=== PATIENT | male | born 1985 | race Caucasian/White ===

== ENCOUNTER 2017-09-27 13:05 | Inpatient (IN) | payer OTHER ==
[2017-09-27 16:39] VITALS: BMI 23.6
--- NOTE | 2017-09-27 17:10 | HP ---
COWS - Scale Resting Pulse: 1= [place] 81-100 Sweatin=Flushed/Facial Moisture Restless Observation: 1= Difficult to Sit Still Pupil Size: 0= Normal to Room Light Bone or Joint Aches: 2= Severe Diffuse Aches Runny Nose/ Eye Tearin= Runny Nose/Eyes GI Upset > 30mins: 2= Nausea/Diarrhea Tremor Observation: 2= Slight Tremor Visible Yawning Observation: 2= >3x During Session Anxiety or Irritability: 2=Irritable/Anxious Goose Flesh Skin: 3=Piloerection COWS Score: 19 CIWA Score - CIWA Score Nausea/Vomitin-Mild Nausea/No Vomiting Muscle Tremors: 4-Moderate,w/Arms Extend Anxiety: 4-Mod. Anxious/Guarded Agitation: 4-Moderately Restless Paroxysmal Sweats: 3 Orientation: 0-Oriented Tacttile Disturbances: 0-None Auditory Disturbances: 0-None Visual Disturbances: 0-None Headache: 0-None Present CIWA-Ar Total Score: 16 Admission ROS BHS - HPI Chief Complaint: I am here for detox and get it right. Allergies/Adverse Reactions: Allergies Allergy/AdvReac Type Severity Reaction Status Date / Time almond Allergy Severe Difficulty Verified 09/27/17 17:01 Breathing No Known Drug Allergies Allergy Verified 09/27/17 17:01 History of Present Illness: pt is a 32yr old male with a history of alcohol and heroin dependence seeking detox for treatment. Exam Limitations: No Limitations - Ebola screening Have you traveled outside of the country in the last 21 days: No (N) Have you had contact with anyone from an Ebola affected area: No Have you been sick,other than usual withdrawal symptoms: No Do you have a fever: No - Review of Systems Constitutional: Chills, Diaphoresis, Loss of Appetite, Night Sweats, Changes in sleep, Unintentional Wgt. Loss EENT: reports: Tearing, Nose Congestion Respiratory: reports: No Symptoms reported Cardiac: reports: Lightheadedness, Syncope GI: reports: Diarrhea, Nausea, Poor Appetite, Poor Fluid Intake, Indigestion : reports: No Symptoms Reported Musculoskeletal: reports: Back Pain, Joint Pain Integumentary: reports: Flushing, Sweating Neuro: reports: Headache, Tingling, Tremors Endocrine: reports: Excessive Sweating, Flushing, Intolerance to Cold, Intolerance to Heat Hematology: reports: No Symptoms Reported Psychiatric: reports: Judgement Intact, Mood/Affect Appropiate, Orientated x3, Agitated, Anxious Other Systems: Reviewed and Negative Patient History - Patient Medical History Hx Anemia: No Hx Asthma: No Hx Chronic Obstructive Pulmonary Disease (COPD): No Hx Cancer: No Hx Cardiac Disorders: No Hx Congestive Heart Failure: No Hx Hypertension: No Hx Hypercholesterolemia: No Hx Pacemaker: No HX Cerebrovascular Accident: No Hx Seizures: No Hx Dementia: No Hx Diabetes: No Hx Gastrointestinal Disorders: No Hx Liver Disease: No Hx Genitourinary Disorders: No Hx Sexually Transmitted Disorders: No Hx Renal Disease (ESRD): No Hx Thyroid Disease: No Hx Human Immunodeficiency Virus (HIV): No (negative) Hx Hepatitis C: No (negative) Hx Depression: No Hx Suicide Attempt: No Hx Bipolar Disorder: No Hx Schizophrenia: No Other Medical History: anxiety - Patient Surgical History Past Surgical History: No - PPD History Previous Implant?: Yes Documented Results: Negative w/o proof PPD to be Administered?: Yes - Reproductive History Patient is a Female of Child Bearing Age (11 -55 yrs old): No - Smoking Cessation Smoking history: Current every day smoker Have you smoked in the past 12 months: Yes Aproximately how many cigarettes per day: 7 Hx Chewing Tobacco Use: No Initiated information on smoking cessation: Yes 'Breaking Loose' booklet given: 09/27/17 - Substance & Tx. History Hx Alcohol Use: Yes Hx Substance Use: Yes Substance Use Type: Alcohol, Heroin Hx Substance Use Treatment: Yes (last detox [facility] 7yrs ago) - Substances Abused Heroin Route: Inhalation Frequency: Daily Amount used: 10-15 bags Age of first use: 31 Date of Last Use: 09/26/17 Alcohol Route: Oral Frequency: 3-6 times per week Amount used: 10-12 beers Age of first use: 21 Date of Last Use: 09/25/17 Family Disease History - Family Disease History Family History: Denies Admission Physical Exam BHS - Vital Signs Vital Signs: Vital Signs - 24 hr 09/27/17 16:37 Temperature 97.2 F L Pulse Rate 81 Respiratory 20 Rate Blood Pressure 125/78 - Physical General Appearance: Yes: Appropriately Dressed, Moderate Distress, Tremorous, Irritable, Sweating, Anxious HEENTM: Yes: Normal Voice, Nasal Congestion, Rhinorrhea Respiratory: Yes: Lungs Clear, Normal Breath Sounds, No Respiratory Distress Neck: Yes: No masses,lesions,Nodules Breast: Yes: Within Normal Limits, Axillae without masses Cardiology: Yes: Regular Rhythm, Regular Rate, S1, S2 Abdominal: Yes: Normal Bowel Sounds, Non Tender, Soft Genitourinary: Yes: Within Normal Limits Back: Yes: Normal Inspection Musculoskeletal: Yes: full range of Motion Extremities: Yes: Normal Capillary Refill, Normal Inspection, Non-Tender, Tremors Neurological: Yes: Fully Oriented, Alert, Normal Response Integumentary: Yes: Normal Color, Diaphoresis Lymphatic: Yes: Within Normal Limits - Diagnostic (1) Opioid dependence with withdrawal Current Visit: Yes Status: Chronic (2) Nicotine dependence Current Visit: Yes Status: Chronic Qualifiers: Nicotine product type: cigarettes Substance use status: uncomplicated Qualified Code(s): F17.210 - Nicotine dependence, cigarettes, uncomplicated (3) Alcohol dependence with uncomplicated withdrawal Current Visit: Yes Status: Chronic Cleared for Admission [facility] - Detox or Rehab [facility] Level of Care: Medically Managed Detox Regimen/Protocol: Methadone/Librium [facility] Breath Alcohol Content Breath Alcohol Content: 0 Urine Drug Screen - Results Drug Screen Negative: No Urine Drug Screen Results: OPI-Opiates
[2017-09-27] MEDS ORDERED: MAG HYDROX/AL HYDROX/SIMETH 30 ML UNIT-DOSE CUP PO PRN (17:14)
[2017-09-27] MEDS ORDERED: guaiFENesin/D-METHORPHAN HB 10 ML UNIT-DOSE CUPS PO PRN (17:14)
[2017-09-27] MEDS ORDERED: MAGNESIUM HYDROX 2400MG/30ML ORAL SUSPENSION 30 ML CUP PO PRN (17:14)
[2017-09-27] MEDS ORDERED: chlordiazePOXIDE HCL 25 MG CAPSULE PO PRN (17:14)
[2017-09-27] MEDS ORDERED: MAGNESIUM CITRATE 300 ML BOTTLE PO PRN (17:14)
[2017-09-27] MEDS ORDERED: LOPERAMIDE HCL 2 MG CAPSULE PO PRN (17:14)
[2017-09-27] MEDS ORDERED: P-EPHED 60MG/TRIPROLIDI 2.5MG TABLET PO PRN (17:14)
[2017-09-27] MEDS ORDERED: MENTHOL/PHENOL 1 EACH UD MM PRN (17:14)
[2017-09-27] MEDS ORDERED: METHADONE HCL 10 MG TABLET (FOR DETOX USE ONLY) PO ONE ×2 (19:00→23:00)
[2017-09-27] MEDS ORDERED: chlordiazePOXIDE HCL 25 MG CAPSULE PO ONE (19:00)
[2017-09-27] MEDS: IBUPROFEN 400 MG TABLET (FP) PO PRN (19:49)
[2017-09-27] MEDS: chlordiazePOXIDE HCL 25 MG CAPSULE PO SCH (22:39)
[2017-09-27] MEDS: THIAMINE HCL 100 MG TABLET (FP) PO SCH (22:39)
[2017-09-27] MEDS: ACETAMINOPHEN 325 MG TABLET (FP) PO PRN (22:43)
[2017-09-27 23:20] LABS: URINE APPEARANCE CLEAR; URINE BILIRUBIN NEGATIVE (NEGATIVE); URINE BLOOD NEGATIVE (NEGATIVE); URINE COLOR LTYELLOW; URINE GLUCOSE (UA) NEGATIVE (NEGATIVE); URINE KETONE TRACE (NEGATIVE); URINE LEUK ESTERASE NEGATIVE (NEGATIVE); URINE NITRITE NEGATIVE (NEGATIVE); URINE PROTEIN NEGATIVE (NEGATIVE); URINE UROBILINOGEN NEGATIVE mg/dL (0.2-1.0)
[2017-09-28] MEDS: chlordiazePOXIDE HCL 25 MG CAPSULE PO SCH (06:00)
[2017-09-28] MEDS ORDERED: METHADONE HCL 10 MG TABLET (FOR DETOX USE ONLY) PO SCH (10:00)
[2017-09-28] MEDS: diazePAM 5 MG TABLET PO PRN ×4 (10:10→22:36)
[2017-09-28] MEDS: PRENATAL VITAMINS W/ FOLIC ACID TABLET (FP) PO SCH (10:10)
[2017-09-28] MEDS: NICOTINE POLACRILEX 4 MG GUM BC PRN (10:11)
[2017-09-28] MEDS: NICOTINE 21 MG/24 HOURS TOPICAL PATCH TD SCH (10:11)
[2017-09-28 10:22] LABS: HEMATOCRIT 43.3 % (35.4-49); HEMOGLOBIN 14.6 GM/dL (11.7-16.9); MCH 29.7 pg (25.7-33.7); MCHC 33.7 g/dl (32.0-35.9); MEAN CELL VOLUME 88.3 fl (80-96); MEAN PLT VOLUME 8.2 fl (7.5-11.1); PLATELET COUNT 279 K/MM3 (134-434); RDW 12.5 % (11.9-15.9); WHITE BLOOD COUNT 6.7 K/mm3 (4.0-10.0)
[2017-09-28 10:31] LABS: ALBUMIN 3.9 g/dl (3.4-5.0); ALK PHOS 50 U/L (45-117); ANION GAP 6 (8-16); BLOOD UREA NITROGEN 11 mg/dL (7-18); CALCIUM 8.8 mg/dL (8.5-10.1); CHLORIDE 104 mmol/L (98-107); CO2 30 mmol/L (21-32); GLUCOSE,RANDOM 93 mg/dL (74-106); SODIUM 140 mmol/L (136-145)
[2017-09-28 10:36] LABS: BILIRUBIN,TOTAL 0.7 mg/dL (0.2-1.0); SGOT/AST 13 U/L (15-37); SGPT/ALT 26 U/L (12-78); TOT PROT 7.1 g/dl (6.4-8.2)
--- NOTE | 2017-09-28 10:45 | EKG ---
Test Reason : Blood Pressure : / mmHG Vent. Rate : 069 BPM Atrial Rate : 069 BPM P-R Int : 134 ms QRS Dur : 096 ms QT Int : 396 ms P-R-T Axes : 040 068 037 degrees QTc Int : 424 ms NORMAL SINUS RHYTHM NORMAL ECG NO PREVIOUS ECGS AVAILABLE Confirmed by BENEDICT BREAUX, SHIRLEY ([id number]) on 09/28/2017 10:45:50 AM Referred By: Confirmed By:SHIRLEY MCMULLEN MD
--- NOTE | 2017-09-28 11:38 | CONSULT ---
[facility] Psychiatric Consult - Data Date of interview: 09/28/17 Admission source: [facility] Identifying data: Pt. is 32 year old male, single, without kids, and currently working. This is patient's first admission to [facility]. Pt. admitted to for alcohol and heroin dependence. Substance Abuse History: Smoking Cessation. Smoking history: Current every day smoker. Have you smoked in the past 12 months: Yes. Aproximately how many cigarettes per day: 7. Hx Chewing Tobacco Use: No. Initiated information on smoking cessation: Yes. 'Breaking Loose' booklet given: 09/27/17. - Substance & Tx. History. Hx Alcohol Use: Yes. Hx Substance Use: Yes. Substance Use Type : Alcohol, Heroin. Hx Substance Use Treatment: Yes (last detox [facility] 7yrs ago). - Substances Abused. Heroin. Route: Inhalation. Frequency: Daily. Amount used: 10-15 bags. Age of first use: 31. Date of Last Use: 09/26/17. * * Alcohol. Route: Oral. Frequency: 3-6 times per week. Amount used: 10-12 beers. Age of first use: 21. Date of Last Use: 09/25/17 Medical History: Denies. Psychiatric History: Pt. denies h/o psychiatric hospitalizations, suicide attempt and OPC. Reports a history of anxiety and has been prescribed klonopin in the past. Physical/Sexual Abuse/Trauma History: Denies. Mental Status Exam - Mental Status Exam Alert and Oriented to: Time, Place, Person Cognitive Function: Good Patient Appearance: Well Groomed Mood: Hopeful Affect: Appropriate Patient Behavior: Appropriate, Cooperative Speech Pattern: Clear, Appropriate Voice Loudness: Normal Thought Process: Goal Oriented Thought Disorder: Not Present Hallucinations: Denies Suicidal Ideation: Denies Homicidal Ideation: Denies Insight/Judgement: Poor Sleep: Poorly Appetite: Fair Muscle strength/Tone: Normal Gait/Station: Normal Psychiatric Findings - Problem List (Holder 1, 2,3) (1) Alcohol dependence with uncomplicated withdrawal Current Visit: Yes Status: Acute (2) Opioid dependence with withdrawal Current Visit: Yes Status: Acute (3) Nicotine dependence Current Visit: Yes Status: Chronic Qualifiers: Nicotine product type: cigarettes Substance use status: uncomplicated Qualified Code(s): F17.210 - Nicotine dependence, cigarettes, uncomplicated - Initial Treatment Plan Initial Treatment Plan: Psychoeducation provided. Detoxification in progress. Pt requesting an anxiety medication. Medications reviewed with patient and made aware that vistaril 50mg is ordered PRN q 4 hours.
--- NOTE | 2017-09-28 13:43 | PN ---
[facility] CIWA - CIWA Score Nausea/Vomitin-Mild Nausea/No Vomiting Muscle Tremors: 3 Anxiety: 4-Mod. Anxious/Guarded Agitation: 3 Paroxysmal Sweats: 2 Orientation: 0-Oriented Tacttile Disturbances: 1-Very Mild Itch/Numbness Auditory Disturbances: 1-Very Mild Visual Disturbances: 1-Very Mild Sensitivity Headache: 0-None Present CIWA-Ar Total Score: 16 S COWS - Scale Resting Pulse: 0= [place] 80 or Below Sweatin= Chills/Flushing Restless Observation: 1= Difficult to Sit Still Pupil Size: 0= Normal to Room Light Bone or Joint Aches: 1= Mild Discomfort Runny Nose/ Eye Tearin= Runny Nose/Eyes GI Upset > 30mins: 2= Nausea/Diarrhea Tremor Observation of Outstretched Hands: 1= Tremor [place], Not Seen Yawning Observation: 1= 1-2x During Session Anxiety or Irritability: 1=Feels Anxious/Irritable Goose Flesh Skin: 3=Piloerection COWS Score: 13 [facility] Progress Note (SOAP) Subjective: alert, interrupted sleep, anxious, body aches, sweat and chills Objective: 09/28/17 13:42 Last Vital Signs Temp Pulse Resp BP Pulse Ox 97 F L 72 18 113/78 09/28/17 10:00 09/28/17 10:00 09/28/17 10:00 09/28/17 10:00 Laboratory Last Values WBC 6.7 K/mm3 (4.0-10.0) 09/28/17 07:00 RBC 4.90 M/mm3 (4.00-5.60) 09/28/17 07:00 Hgb 14.6 GM/dL (11.7-16.9) 09/28/17 07:00 Hct 43.3 % (35.4-49) 09/28/17 07:00 MCV 88.3 fl (80-96) 09/28/17 07:00 MCH 29.7 pg (25.7-33.7) 09/28/17 07:00 MCHC 33.7 g/dl (32.0-35.9) 09/28/17 07:00 RDW 12.5 % (11.9-15.9) 09/28/17 07:00 Plt Count 279 K/MM3 (134-434) 09/28/17 07:00 MPV 8.2 fl (7.5-11.1) 09/28/17 07:00 Sodium 140 mmol/L (136-145) 09/28/17 07:00 Potassium 4.0 mmol/L (3.5-5.1) 09/28/17 07:00 Chloride 104 mmol/L (98-107) 09/28/17 07:00 Carbon Dioxide 30 mmol/L (21-32) 09/28/17 07:00 Anion Gap 6 (8-16) L 09/28/17 07:00 BUN 11 mg/dL (7-18) 09/28/17 07:00 Creatinine 1.0 mg/dL (0.7-1.3) 09/28/17 07:00 Creat Clearance w eGFR > 60 (>60) 09/28/17 07:00 Random Glucose 93 mg/dL (74-106) 09/28/17 07:00 Calcium 8.8 mg/dL (8.5-10.1) 09/28/17 07:00 Total Bilirubin 0.7 mg/dL (0.2-1.0) 09/28/17 07:00 AST 13 U/L (15-37) L 09/28/17 07:00 ALT 26 U/L (12-78) 09/28/17 07:00 Alkaline Phosphatase 50 U/L (45-117) 09/28/17 07:00 Total Protein 7.1 g/dl (6.4-8.2) 09/28/17 07:00 Albumin 3.9 g/dl (3.4-5.0) 09/28/17 07:00 Urine Color Ltyellow 09/27/17 19:43 Urine Appearance Clear 09/27/17 19:43 Urine pH 7.0 (5.0-8.0) 09/27/17 19:43 Ur Specific [place] 1.017 (1.001-1.035) 09/27/17 19:43 Urine Protein Negative (NEGATIVE) 09/27/17 19:43 Urine Glucose (UA) Negative (NEGATIVE) 09/27/17 19:43 Urine Ketones Trace (NEGATIVE) H 09/27/17 19:43 Urine Blood Negative (NEGATIVE) 09/27/17 19:43 Urine Nitrite Negative (NEGATIVE) 09/27/17 19:43 Urine Bilirubin Negative (NEGATIVE) 09/27/17 19:43 Urine Urobilinogen Negative mg/dL (0.2-1.0) 09/27/17 19:43 Ur Leukocyte Esterase Negative (NEGATIVE) 09/27/17 19:43 Labs noted Assessment: 09/28/17 13:43 withdrawal symptoms Plan: Continue detox Increase fluids
--- NOTE | 2017-09-28 13:52 | PN ---
[facility] Progress Note Note: Patien on Librium detox, reports the Librium makes him feel anxious. Detox changed to Valium.
[2017-09-28] MEDS: THIAMINE HCL 100 MG TABLET (FP) PO SCH (22:36)
[2017-09-28] MEDS: IBUPROFEN 400 MG TABLET (FP) PO PRN (22:37)
[2017-09-28] MEDS ORDERED: chlordiazePOXIDE HCL 25 MG CAPSULE PO SCH (23:00)
[2017-09-29] MEDS: diazePAM 5 MG TABLET PO PRN ×2 (06:05→18:00)
[2017-09-29] MEDS: PRENATAL VITAMINS W/ FOLIC ACID TABLET (FP) PO SCH (10:35)
[2017-09-29] MEDS: diazePAM 5 MG TABLET PO SCH ×3 (10:35→22:39)
[2017-09-29] MEDS: METHADONE HCL 5 MG TABLET (FOR DETOX USE ONLY) PO SCH (10:36)
[2017-09-29] MEDS: NICOTINE 21 MG/24 HOURS TOPICAL PATCH TD SCH (10:36)
[2017-09-29] MEDS: CYCLOBENZAPRINE HCL 5 MG TABLET PO PRN ×2 (14:15→22:39)
--- NOTE | 2017-09-29 14:35 | PN ---
S CIWA - CIWA Score Nausea/Vomitin-Mild Nausea/No Vomiting Muscle Tremors: 3 Anxiety: 3 Agitation: 0-Normal Activity Paroxysmal Sweats: 3 Orientation: 0-Oriented Tacttile Disturbances: 1-Very Mild Itch/Numbness Auditory Disturbances: 0-None Visual Disturbances: 1-Very Mild Sensitivity Headache: 1-Very Mild CIWA-Ar Total Score: 13 [facility] COWS - Scale Resting Pulse: 0= [place] 80 or Below Sweatin= Chills/Flushing Restless Observation: 1= Difficult to Sit Still Pupil Size: 0= Normal to Room Light Bone or Joint Aches: 1= Mild Discomfort Runny Nose/ Eye Tearin= None GI Upset > 30mins: 2= Nausea/Diarrhea Tremor Observation of Outstretched Hands: 2= Slight Tremor Visible Yawning Observation: 1= 1-2x During Session Anxiety or Irritability: 1=Feels Anxious/Irritable Goose Flesh Skin: 3=Piloerection COWS Score: 12 S Progress Note (SOAP) Subjective: Interrupted sleep, anxious, body aches, back pain, tremors Objective: 09/29/17 14:33 Vital Signs Temperature 97.9 F 09/29/17 14:32 Pulse Rate 76 09/29/17 14:32 Respiratory Rate 18 09/29/17 14:32 Blood Pressure 121/69 09/29/17 14:32 O2 Sat by Pulse Oximetry (%) Laboratory Last Values WBC 6.7 K/mm3 (4.0-10.0) 09/28/17 07:00 RBC 4.90 M/mm3 (4.00-5.60) 09/28/17 07:00 Hgb 14.6 GM/dL (11.7-16.9) 09/28/17 07:00 Hct 43.3 % (35.4-49) 09/28/17 07:00 MCV 88.3 fl (80-96) 09/28/17 07:00 MCH 29.7 pg (25.7-33.7) 09/28/17 07:00 MCHC 33.7 g/dl (32.0-35.9) 09/28/17 07:00 RDW 12.5 % (11.9-15.9) 09/28/17 07:00 Plt Count 279 K/MM3 (134-434) 09/28/17 07:00 MPV 8.2 fl (7.5-11.1) 09/28/17 07:00 Sodium 140 mmol/L (136-145) 09/28/17 07:00 Potassium 4.0 mmol/L (3.5-5.1) 09/28/17 07:00 Chloride 104 mmol/L (98-107) 09/28/17 07:00 Carbon Dioxide 30 mmol/L (21-32) 09/28/17 07:00 Anion Gap 6 (8-16) L 09/28/17 07:00 BUN 11 mg/dL (7-18) 09/28/17 07:00 Creatinine 1.0 mg/dL (0.7-1.3) 09/28/17 07:00 Creat Clearance w eGFR > 60 (>60) 09/28/17 07:00 Random Glucose 93 mg/dL (74-106) 09/28/17 07:00 Calcium 8.8 mg/dL (8.5-10.1) 09/28/17 07:00 Total Bilirubin 0.7 mg/dL (0.2-1.0) 09/28/17 07:00 AST 13 U/L (15-37) L 09/28/17 07:00 ALT 26 U/L (12-78) 09/28/17 07:00 Alkaline Phosphatase 50 U/L (45-117) 09/28/17 07:00 Total Protein 7.1 g/dl (6.4-8.2) 09/28/17 07:00 Albumin 3.9 g/dl (3.4-5.0) 09/28/17 07:00 Urine Color Ltyellow 09/27/17 19:43 Urine Appearance Clear 09/27/17 19:43 Urine pH 7.0 (5.0-8.0) 09/27/17 19:43 Ur Specific [place] 1.017 (1.001-1.035) 09/27/17 19:43 Urine Protein Negative (NEGATIVE) 09/27/17 19:43 Urine Glucose (UA) Negative (NEGATIVE) 09/27/17 19:43 Urine Ketones Trace (NEGATIVE) H 09/27/17 19:43 Urine Blood Negative (NEGATIVE) 09/27/17 19:43 Urine Nitrite Negative (NEGATIVE) 09/27/17 19:43 Urine Bilirubin Negative (NEGATIVE) 09/27/17 19:43 Urine Urobilinogen Negative mg/dL (0.2-1.0) 09/27/17 19:43 Ur Leukocyte Esterase Negative (NEGATIVE) 09/27/17 19:43 RPR Titer Nonreactive (NONREACTIVE) 09/28/17 07:00 Labs noted Assessment: 09/29/17 14:34 AOx3 ambulating No distress Withdrawal symptoms Plan: Continue Detox Increase fluids
[2017-09-29] MEDS: ACETAMINOPHEN 325 MG TABLET (FP) PO PRN (18:00)
[2017-09-29] MEDS: THIAMINE HCL 100 MG TABLET (FP) PO SCH (22:39)
[2017-09-29] MEDS: hydrOXYzine PAMOATE 50 MG CAPSULE (FP) PO PRN (22:39)
[2017-09-29] MEDS ORDERED: chlordiazePOXIDE 5 MG CAPSULE PO SCH (23:00)
[2017-09-29] MEDS: NICOTINE POLACRILEX 4 MG GUM BC PRN (23:06)
[2017-09-30] MEDS: PRENATAL VITAMINS W/ FOLIC ACID TABLET (FP) PO SCH (10:07)
[2017-09-30] MEDS: CYCLOBENZAPRINE HCL 5 MG TABLET PO PRN ×2 (10:07→22:40)
[2017-09-30] MEDS: METHADONE HCL 5 MG TABLET (FOR DETOX USE ONLY) PO SCH (10:08)
[2017-09-30] MEDS: NICOTINE 21 MG/24 HOURS TOPICAL PATCH TD SCH (10:08)
[2017-09-30] MEDS: diazePAM 5 MG TABLET PO PRN ×4 (10:08→22:35)
--- NOTE | 2017-09-30 10:27 | PN ---
[facility] Progress Note (SOAP) Subjective: anxiety shakes interrupted sleep Objective: 09/30/17 10:25 Vital Signs Temperature 97.0 F L 09/30/17 07:35 Pulse Rate 70 09/30/17 07:35 Respiratory Rate 16 09/30/17 07:35 Blood Pressure 115/59 09/30/17 07:35 O2 Sat by Pulse Oximetry (%) aaox3 ambulating no acute distress Assessment: 09/30/17 10:26 withdrawal sx Plan: continue detox increase fluids
[2017-09-30] MEDS: IBUPROFEN 400 MG TABLET (FP) PO PRN (12:00)
[2017-09-30] MEDS: THIAMINE HCL 100 MG TABLET (FP) PO SCH (22:34)
[2017-09-30] MEDS ORDERED: chlordiazePOXIDE HCL 10 MG CAPSULE PO SCH (23:00)
[2017-10-01] MEDS ORDERED: METHADONE HCL 10 MG TABLET (FOR DETOX USE ONLY) PO SCH (10:00)
[2017-10-01] MEDS ORDERED: diazePAM 5 MG TABLET PO SCH (10:00)
[2017-10-01] MEDS: CYCLOBENZAPRINE HCL 5 MG TABLET PO PRN ×2 (10:14→22:15)
[2017-10-01] MEDS: NICOTINE 21 MG/24 HOURS TOPICAL PATCH TD SCH (10:15)
[2017-10-01] MEDS: PRENATAL VITAMINS W/ FOLIC ACID TABLET (FP) PO SCH (10:15)
[2017-10-01] MEDS: hydrOXYzine PAMOATE 50 MG CAPSULE (FP) PO PRN ×2 (13:37→22:15)
--- NOTE | 2017-10-01 13:40 | PN ---
S Progress Note (SOAP) Subjective: Interrupted sleep with some improvement, shakes and body aches Objective: 10/01/17 13:35 Last Vital Signs Temp Pulse Resp BP Pulse Ox 97.9 F 71 18 110/58 10/01/17 10:28 10/01/17 10:28 10/01/17 10:28 10/01/17 10:28 Laboratory Last Values WBC 6.7 K/mm3 (4.0-10.0) 09/28/17 07:00 RBC 4.90 M/mm3 (4.00-5.60) 09/28/17 07:00 Hgb 14.6 GM/dL (11.7-16.9) 09/28/17 07:00 Hct 43.3 % (35.4-49) 09/28/17 07:00 MCV 88.3 fl (80-96) 09/28/17 07:00 MCH 29.7 pg (25.7-33.7) 09/28/17 07:00 MCHC 33.7 g/dl (32.0-35.9) 09/28/17 07:00 RDW 12.5 % (11.9-15.9) 09/28/17 07:00 Plt Count 279 K/MM3 (134-434) 09/28/17 07:00 MPV 8.2 fl (7.5-11.1) 09/28/17 07:00 Sodium 140 mmol/L (136-145) 09/28/17 07:00 Potassium 4.0 mmol/L (3.5-5.1) 09/28/17 07:00 Chloride 104 mmol/L (98-107) 09/28/17 07:00 Carbon Dioxide 30 mmol/L (21-32) 09/28/17 07:00 Anion Gap 6 (8-16) L 09/28/17 07:00 BUN 11 mg/dL (7-18) 09/28/17 07:00 Creatinine 1.0 mg/dL (0.7-1.3) 09/28/17 07:00 Creat Clearance w eGFR > 60 (>60) 09/28/17 07:00 Random Glucose 93 mg/dL (74-106) 09/28/17 07:00 Calcium 8.8 mg/dL (8.5-10.1) 09/28/17 07:00 Total Bilirubin 0.7 mg/dL (0.2-1.0) 09/28/17 07:00 AST 13 U/L (15-37) L 09/28/17 07:00 ALT 26 U/L (12-78) 09/28/17 07:00 Alkaline Phosphatase 50 U/L (45-117) 09/28/17 07:00 Total Protein 7.1 g/dl (6.4-8.2) 09/28/17 07:00 Albumin 3.9 g/dl (3.4-5.0) 09/28/17 07:00 Urine Color Ltyellow 09/27/17 19:43 Urine Appearance Clear 09/27/17 19:43 Urine pH 7.0 (5.0-8.0) 09/27/17 19:43 Ur Specific [place] 1.017 (1.001-1.035) 09/27/17 19:43 Urine Protein Negative (NEGATIVE) 09/27/17 19:43 Urine Glucose (UA) Negative (NEGATIVE) 09/27/17 19:43 Urine Ketones Trace (NEGATIVE) H 09/27/17 19:43 Urine Blood Negative (NEGATIVE) 09/27/17 19:43 Urine Nitrite Negative (NEGATIVE) 09/27/17 19:43 Urine Bilirubin Negative (NEGATIVE) 09/27/17 19:43 Urine Urobilinogen Negative mg/dL (0.2-1.0) 09/27/17 19:43 Ur Leukocyte Esterase Negative (NEGATIVE) 09/27/17 19:43 RPR Titer Nonreactive (NONREACTIVE) 09/28/17 07:00 Labs noted Assessment: 10/01/17 13:39 AOx 3 Ambulating without deficit No distress Plan: Continue detox
[2017-10-01] MEDS: THIAMINE HCL 100 MG TABLET (FP) PO SCH (22:13)
[2017-10-02] MEDS ORDERED: METHADONE HCL 5 MG TABLET (FOR DETOX USE ONLY) PO SCH (06:00)
[2017-10-02 06:22] VITALS: BP 112/57; PULSE 59; TEMP 97.9
[2017-10-02] MEDS: PRENATAL VITAMINS W/ FOLIC ACID TABLET (FP) PO SCH (09:01)
[2017-10-02] MEDS: NICOTINE 21 MG/24 HOURS TOPICAL PATCH TD SCH (09:01)
[2017-10-02] MEDS ORDERED: diazePAM 5 MG TABLET PO SCH (10:00)
--- NOTE | 2017-10-02 12:13 | DS ---
[facility] Detox Discharge Summary Admission Date: 09/27/17 Discharge Date: 10/02/17 - History Present History: Alcohol Dependence, Opioid Dependence - Physical Exam Results Vital Signs: Vital Signs Temperature 97.9 F 10/02/17 06:22 Pulse Rate 59 L 10/02/17 06:22 Respiratory Rate 16 10/02/17 06:22 Blood Pressure 112/57 10/02/17 06:22 O2 Sat by Pulse Oximetry (%) - Treatment Hospital Course: Detox Protocol Followed, Detoxed Safely, Responded well, Discharged Condition Good, Rehab Referral Accepted Patient has Accepted a Rehab Referral to: as per counselor arranged - Medication Discharge Medications: Ambulatory Orders NK [No Known Home Medication] 05/25/16 - Diagnosis (1) Alcohol dependence with uncomplicated withdrawal Status: Acute (2) Nicotine dependence Status: Acute Qualifiers: Nicotine product type: cigarettes Substance use status: in withdrawal Qualified Code(s): F17.213 - Nicotine dependence, cigarettes, with withdrawal (3) Opioid dependence with withdrawal Status: Acute - AMA Did Patient Leave Against Medical Advice: No
[2017-10-03] MEDS ORDERED: diazePAM 5 MG TABLET PO SCH (10:00)
== END 2017-10-02 09:44 | disposition home or self-care (01) | DRG 773 ==
LOC: YASAS 13:05 → Y6N 17:08
PROVIDERS: ADMIT Internal Medicine; ATTEND Internal Medicine
PROC: HZ2ZZZZ Detoxification Services for Substance Abuse Treatment (ICD-10-PCS; principal; 2017-09-27)
DX: F11.23 Opioid dependence with withdrawal (principal); F10.230 Alcohol dependence with withdrawal, uncomplicated; F17.213 Nicotine dependence, cigarettes, with withdrawal; Z91.018 Allergy to other foods
CPT/HCPCS: 36415; 80053; 81003; 85027; 86593; 93005; 93010

== ENCOUNTER 2018-06-09 10:24 | Inpatient (IN) | payer OTHER ==
[2018-06-09 11:29] VITALS: BMI 25.2
--- NOTE | 2018-06-09 12:54 | HP ---
COWS - Scale Resting Pulse: 0= [place] 80 or Below Sweatin= Chills/Flushing Restless Observation: 1= Difficult to Sit Still Pupil Size: 1= Pupils >than Normal Bone or Joint Aches: 2= Severe Diffuse Aches Runny Nose/ Eye Tearin= Runny Nose/Eyes GI Upset > 30mins: 2= Nausea/Diarrhea Tremor Observation: 2= Slight Tremor Visible Yawning Observation: 2= >3x During Session Anxiety or Irritability: 2=Irritable/Anxious Goose Flesh Skin: 3=Piloerection COWS Score: 18 Admission ROS S - HPI Chief Complaint: i need help to stop using heroin, cocaine and drink alcohol occasionally Allergies/Adverse Reactions: Allergies Allergy/AdvReac Type Severity Reaction Status Date / Time almond Allergy Severe Difficulty Verified 06/09/18 12:02 Breathing No Known Drug Allergies Allergy Verified 06/09/18 12:02 History of Present Illness: this 33 years old male with heroin dependence,drinking alcohol, and cocaine abused,seeking detox,withdrawal symptom,last treatment 09/27/17 10/02/17 nicotine dependence anxiety,depression,insomnia had previous admission before plan for out patient program after detox Exam Limitations: No Limitations - Ebola screening Have you traveled outside of the country in the last 21 days: No (N) Have you had contact with anyone from an Ebola affected area: No Have you been sick,other than usual withdrawal symptoms: No Do you have a fever: No - Review of Systems Constitutional: Chills, Loss of Appetite, Malaise, Night Sweats, Changes in sleep, Weakness EENT: reports: Tearing, Nose Congestion Respiratory: reports: No Symptoms reported Cardiac: reports: No Symptoms Reported GI: reports: Diarrhea, Nausea, Vomiting, Abdominal cramping : reports: No Symptoms Reported Musculoskeletal: reports: Back Pain, Joint Pain, Muscle Pain, Joint Stiffness Integumentary: reports: Dryness Neuro: reports: Headache, Tremors Endocrine: reports: No Symptoms Reported Hematology: reports: No Symptoms Reported Psychiatric: reports: No Sypmtoms Reported, Judgement Intact, Mood/Affect Appropiate, Orientated x3, Anxious, Depressed (insomnia) Patient History - Patient Medical History Hx Anemia: No Hx Asthma: No Hx Chronic Obstructive Pulmonary Disease (COPD): No Hx Cancer: No Hx Cardiac Disorders: No Hx Congestive Heart Failure: No Hx Hypertension: No Hx Hypercholesterolemia: No Hx Pacemaker: No HX Cerebrovascular Accident: No Hx Seizures: No Hx Dementia: No Hx Diabetes: No Hx Gastrointestinal Disorders: No Hx Liver Disease: No Hx Genitourinary Disorders: No Hx Sexually Transmitted Disorders: No Hx Renal Disease (ESRD): No Hx Thyroid Disease: No Hx Human Immunodeficiency Virus (HIV): No ( negative last 2015) Hx Hepatitis C: No (negative) Hx Depression: No Hx Suicide Attempt: No Hx Bipolar Disorder: No Hx Schizophrenia: No Other Medical History: anxiety,no suicidal,no homicidal - Patient Surgical History Past Surgical History: No Hx Neurologic Surgery: No Hx Cataract Extraction: No Hx Cardiac Surgery: No Hx Lung Surgery: No Hx Breast Surgery: No Hx Breast Biopsy: No Hx Abdominal Surgery: No Hx Appendectomy: No Hx Cholecystectomy: No Hx Genitourinary Surgery: No Hx Section: No Hx Orthopedic Surgery: No Anesthesia Reaction: No - PPD History Previous Implant?: Yes Documented Results: Negative w/proof Implanted On Prior [facility] Admission?: Yes Date: 09/29/17 Results: 0 mm PPD to be Administered?: No - Smoking Cessation Smoking history: Current every day smoker Have you smoked in the past 12 months: Yes Aproximately how many cigarettes per day: 20 Hx Chewing Tobacco Use: No Initiated information on smoking cessation: Yes 'Breaking Loose' booklet given: 06/09/18 - Substance & Tx. History Hx Alcohol Use: Yes Hx Substance Use: Yes Substance Use Type: Alcohol, Cocaine, Heroin Hx Substance Use Treatment: Yes ([facility] 09/27/17 to 10/02/17) - Substances Abused Heroin Route: Inhalation Frequency: Daily Amount used: 3 BUNDLES Age of first use: 32 Date of Last Use: 06/08/18 Alcohol Route: Oral Frequency: 3-6 times per week Amount used: 1 bottle of wine/12 packs of 12 ozs of beer Age of first use: 12 Date of Last Use: 06/07/18 Cocaine Route: Inhalation Frequency: 1-3 times last 30 days Amount used: 1 gram Age of first use: 17 Date of Last Use: 06/07/18 Family Disease History - Family Disease History Family History: Denies Admission Physical Exam BHS - Vital Signs Vital Signs: Vital Signs - 24 hr 06/09/18 11:28 Temperature 98.8 F Pulse Rate 68 Respiratory 18 Rate Blood Pressure 145/93 - Physical General Appearance: Yes: Moderate Distress, Tremorous, Irritable, Sweating, Anxious HEENTM: Yes: Normal ENT Inspection, KARLOS, Pharynx Normal Respiratory: Yes: Within Normal Limits, Lungs Clear, Normal Breath Sounds, No Respiratory Distress Neck: Yes: Within Normal Limits, Supple, Trachea in good position Breast: Yes: Within Normal Limits Cardiology: Yes: Within Normal Limits, Regular Rhythm, Regular Rate, S1, S2 Abdominal: Yes: Within Normal Limits, Normal Bowel Sounds, Non Tender, Soft Genitourinary: Yes: Within Normal Limits Back: Yes: Muscle Spasm Musculoskeletal: Yes: Back pain, Joint Stiffness, Muscle Pain Extremities: Yes: Within Normal Limits, Normal Range of Motion, Tremors Neurological: Yes: construction safety consultant II-XII NML intact, Fully Oriented, Alert, Motor Strength 5/5 Integumentary: Yes: Dry Lymphatic: Yes: Within Normal Limits - Diagnostic (1) Opioid dependence with withdrawal Current Visit: No Status: Acute (2) Alcohol dependence with uncomplicated withdrawal Current Visit: No Status: Acute (3) Nicotine dependence Current Visit: No Status: Acute Qualifiers: Nicotine product type: cigarettes Substance use status: in withdrawal Qualified Code(s): F17.213 - Nicotine dependence, cigarettes, with withdrawal (4) Insomnia secondary to depression with anxiety Current Visit: Yes Status: Acute (5) Cocaine dependence Current Visit: Yes Status: Acute Cleared for Admission [facility] - Detox or Rehab [facility] Level of Care: Medically Managed Detox Regimen/Protocol: Methadone/Valium [facility] Breath Alcohol Content Breath Alcohol Content: 0 Urine Drug Screen - Results Drug Screen Negative: No Urine Drug Screen Results: BRENDEN-Cocaine, OPI-Opiates, FEN-Fentanyl
[2018-06-09] MEDS ORDERED: IBUPROFEN 400 MG TABLET (FP) PO PRN (13:08)
[2018-06-09] MEDS ORDERED: MAG HYDROX/AL HYDROX/SIMETH 30 ML UNIT-DOSE CUP PO PRN (13:08)
[2018-06-09] MEDS ORDERED: MAGNESIUM HYDROX 2400MG/30ML ORAL SUSPENSION 30 ML CUP PO PRN (13:08)
[2018-06-09] MEDS ORDERED: guaiFENesin/D-METHORPHAN HB 10 ML UNIT-DOSE CUPS PO PRN (13:08)
[2018-06-09] MEDS ORDERED: LOPERAMIDE HCL 2 MG CAPSULE PO PRN (13:08)
[2018-06-09] MEDS ORDERED: MENTHOL/PHENOL 1 EACH UD MM PRN (13:08)
[2018-06-09] MEDS ORDERED: ACETAMINOPHEN 325 MG TABLET (FP) PO PRN (13:08)
[2018-06-09] MEDS ORDERED: P-EPHED 60MG/TRIPROLIDI 2.5MG TABLET PO PRN (13:08)
[2018-06-09] MEDS ORDERED: hydrOXYzine PAMOATE 25 MG CAPSULE (FP) PO PRN (13:08)
[2018-06-09] MEDS ORDERED: MAGNESIUM CITRATE 300 ML BOTTLE PO PRN (13:08)
[2018-06-09] MEDS ORDERED: METHADONE HCL 10 MG TABLET (FOR DETOX USE ONLY) PO ONE ×2 (13:08→23:00)
[2018-06-09] MEDS ORDERED: NICOTINE POLACRILEX 2 MG GUM BC PRN (13:08)
[2018-06-09] MEDS ORDERED: diazePAM 5 MG TABLET PO ONE (13:30)
[2018-06-09] MEDS: diazePAM 5 MG TABLET PO SCH ×2 (14:57→22:12)
--- NOTE | 2018-06-09 15:44 | EKG ---
Test Reason : Blood Pressure : / mmHG Vent. Rate : 061 BPM Atrial Rate : 061 BPM P-R Int : 144 ms QRS Dur : 094 ms QT Int : 396 ms P-R-T Axes : 051 068 032 degrees QTc Int : 398 ms NORMAL SINUS RHYTHM NORMAL ECG WHEN COMPARED WITH ECG OF 27-SEP-2017 18:41, NO SIGNIFICANT CHANGE WAS FOUND Confirmed by SHIRLEY MCMULLEN MD ([id number]) on 06/09/2018 3:44:30 PM Referred By: Confirmed By:SHIRLEY MCMULLEN MD
--- NOTE | 2018-06-09 16:00 | CONSULT ---
[facility] Psychiatric Consult - Data Date of interview: 06/09/18 Admission source: [facility] Identifying data: Patient is a 33 year old single male, without children, domiciled, and works as a on site construction superintendent. This is one of multiple admissions for patient. Pt. admitted to for alcohol and opiate dependence. Substance Abuse History: PPD History. Previous Implant?: Yes. Documented Results: Negative w/proof. Implanted On Prior [facility] Admission?: Yes. Date: 09/29. Results: 0 mm. PPD to be Administered?: No. - Smoking Cessation. Smoking history: Current every day smoker. Have you smoked in the past 12 months: Yes. Aproximately how many cigarettes per day: 20. Hx Chewing Tobacco Use: No. Initiated information on smoking cessation: Yes. 'Breaking Loose' booklet given: 06/09/18. - Substance & Tx. History. Hx Alcohol Use: Yes. Hx Substance Use: Yes. Substance Use Type: Alcohol, Cocaine, Heroin. Hx Substance Use Treatment: Yes ([facility] 09/27/17 to 10/02/17). - Substances Abused. Heroin. Route: Inhalation. Frequency: Daily. Amount used: 3 BUNDLES. Age of first use: 32. Date of Last Use: 06/08/18. Alcohol. Route: Oral. Frequency: 3-6 times per week. Amount used: 1 bottle of wine/12 packs of 12 ozs of beer. Age of first use: 12. Date of Last Use: 06/07/18. Cocaine. Route: Inhalation. Frequency: 1-3 times last 30 days. Amount used: 1 gram. Age of first use: 17. Date of Last Use: 06/07/18 Medical History: denies. Psychiatric History: Patient denies h/o psychiatric hospitalization, outpatient care, and suicide attempt. States he has a history of anxiety which started when he was incarcerated for 5 years after being charged with burglary. Physical/Sexual Abuse/Trauma History: denies. Mental Status Exam - Mental Status Exam Alert and Oriented to: Time, Place, Person Cognitive Function: Good Patient Appearance: Well Groomed Mood: Euthymic Affect: Appropriate Patient Behavior: Appropriate, Cooperative Speech Pattern: Clear, Appropriate Voice Loudness: Normal Thought Process: Intact, Goal Oriented Thought Disorder: Not Present Hallucinations: Denies Suicidal Ideation: Denies Homicidal Ideation: Denies Insight/Judgement: Poor Sleep: Fair Appetite: Fair Muscle strength/Tone: Normal Gait/Station: Normal Psychiatric Findings - Problem List ([place] 1, 2,3) (1) Alcohol dependence with uncomplicated withdrawal Current Visit: Yes Status: Acute (2) Opioid dependence with withdrawal Current Visit: Yes Status: Acute (3) Cocaine dependence Current Visit: Yes Status: Acute (4) Insomnia Current Visit: Yes Status: Acute - Initial Treatment Plan Initial Treatment Plan: Psychoeducation provided. Education provided. Detoxification in progress. Pt. informed that vistaril 25mg q4h is ordered for anxiety.
[2018-06-09 17:13] LABS: URINE APPEARANCE SLCLOUDY; URINE BILIRUBIN NEGATIVE (<2.0 mg/dL); URINE COLOR YELLOW; URINE GLUCOSE (UA) NEGATIVE (NEGATIVE); URINE KETONE NEGATIVE (NEGATIVE); URINE LEUK ESTERASE NEGATIVE (NEGATIVE); URINE NITRITE NEGATIVE (NEGATIVE); URINE PROTEIN NEGATIVE (NEGATIVE); URINE UROBILINOGEN NEGATIVE mg/dL (0.2-1.0)
[2018-06-09] MEDS ORDERED: MELATONIN 5 MG TABLETS PO PRN (22:00)
[2018-06-09] MEDS: cloNIDine HCL 0.1 MG TABLET PO SCH (22:12)
[2018-06-09] MEDS: THIAMINE HCL 100 MG TABLET (FP) PO SCH (22:12)
[2018-06-10] MEDS: diazePAM 5 MG TABLET PO SCH ×3 (05:41→22:29)
[2018-06-10] MEDS: diazePAM 5 MG TABLET PO PRN ×3 (07:49→17:21)
[2018-06-10] MEDS ORDERED: METHADONE HCL 10 MG TABLET (FOR DETOX USE ONLY) PO SCH (10:00)
[2018-06-10] MEDS: cloNIDine HCL 0.1 MG TABLET PO SCH ×2 (10:35→22:28)
[2018-06-10] MEDS: PRENATAL VITAMINS W/ FOLIC ACID TABLET (FP) PO SCH (10:35)
--- NOTE | 2018-06-10 11:13 | PN ---
S COWS - Scale Resting Pulse: 0= [place] 80 or Below Sweatin=Flushed/Facial Moisture Restless Observation: 1= Difficult to Sit Still Pupil Size: 0= Normal to Room Light Bone or Joint Aches: 2= Severe Diffuse Aches Runny Nose/ Eye Tearin= Runny Nose/Eyes GI Upset > 30mins: 2= Nausea/Diarrhea Tremor Observation of Outstretched Hands: 1= Tremor [place], Not Seen Yawning Observation: 1= 1-2x During Session Anxiety or Irritability: 0= None Goose Flesh Skin: 0=Smooth Skin COWS Score: 11 S Progress Note (SOAP) Subjective: Muscle aches, interrupted sleep Objective: 06/10/18 11:12 Vital Signs 06/10/18 06/10/18 03:30 06:20 Temperature 97.2 F L Pulse Rate 77 Respiratory 18 18 Rate Blood Pressure 109/73 Laboratory Last Values Urine Color Yellow 06/09/18 13:45 Urine Appearance Slcloudy 06/09/18 13:45 Urine pH 5.0 (5.0-8.0) D 06/09/18 13:45 Ur Specific [place] 1.023 (1.001-1.035) 06/09/18 13:45 Urine Protein Negative (NEGATIVE) 06/09/18 13:45 Urine Glucose (UA) Negative (NEGATIVE) 06/09/18 13:45 Urine Ketones Negative (NEGATIVE) 06/09/18 13:45 Urine Blood Negative (NEGATIVE) 06/09/18 13:45 Urine Nitrite Negative (NEGATIVE) 06/09/18 13:45 Urine Bilirubin Negative (<2.0 mg/dL) 06/09/18 13:45 Urine Urobilinogen Negative mg/dL (0.2-1.0) 06/09/18 13:45 Ur Leukocyte Esterase Negative (NEGATIVE) 06/09/18 13:45 Labs noted-UA negative CBC/CMP pending Assessment: 06/10/18 11:13 Withdrawal sx Plan: Continue detox
[2018-06-10 11:24] LABS: HEMATOCRIT 41.8 % (35.4-49); MCH 29.8 pg (25.7-33.7); MCHC 33.5 g/dl (32.0-35.9); MEAN CELL VOLUME 89.1 fl (80-96); MEAN PLT VOLUME 8.5 fl (7.5-11.1); PLATELET COUNT 286 K/MM3 (134-434); RBC 4.69 M/mm3 (4.00-5.60); RDW 13.4 % (11.9-15.9); WHITE BLOOD COUNT 6.4 K/mm3 (4.0-10.0)
[2018-06-10 11:40] LABS: ALBUMIN 4.1 g/dl (3.4-5.0); ALK PHOS 55 U/L (45-117); ANION GAP 9 MMOL/L (8-16); BILIRUBIN,TOTAL 0.5 mg/dL (0.2-1); BLOOD UREA NITROGEN 10 mg/dL (7-18); CALCIUM 9.4 mg/dL (8.5-10.1); CHLORIDE 100 mmol/L (98-107); CO2 29 mmol/L (21-32); GLUCOSE,RANDOM 121 mg/dL (74-106); SGOT/AST 19 U/L (15-37); SGPT/ALT 37 U/L (13-61); SODIUM 138 mmol/L (136-145); TOT PROT 7.7 g/dl (6.4-8.2)
[2018-06-10] MEDS: CYCLOBENZAPRINE HCL 10 MG TABLET (FP) PO PRN (12:26)
[2018-06-10] MEDS: THIAMINE HCL 100 MG TABLET (FP) PO SCH (22:28)
[2018-06-11] MEDS: diazePAM 5 MG TABLET PO PRN ×3 (03:31→15:39)
[2018-06-11] MEDS: CYCLOBENZAPRINE HCL 10 MG TABLET (FP) PO PRN (07:33)
[2018-06-11] MEDS ORDERED: METHADONE HCL 5 MG TABLET (FOR DETOX USE ONLY) PO SCH (10:00)
[2018-06-11] MEDS ORDERED: diazePAM 5 MG TABLET PO SCH (10:00)
[2018-06-11] MEDS: cloNIDine HCL 0.1 MG TABLET PO SCH (10:09)
[2018-06-11] MEDS: PRENATAL VITAMINS W/ FOLIC ACID TABLET (FP) PO SCH (10:09)
--- NOTE | 2018-06-11 16:16 | PN ---
[facility] CIWA - CIWA Score Nausea/Vomitin Muscle Tremors: 3 Anxiety: 3 Agitation: 3 Paroxysmal Sweats: 3 Orientation: 0-Oriented Tacttile Disturbances: 0-None Auditory Disturbances: 0-None Visual Disturbances: 0-None Headache: 1-Very Mild CIWA-Ar Total Score: 15 BHS COWS - Scale Resting Pulse: 0= [place] 80 or Below Sweatin= Chills/Flushing Restless Observation: 3= Extraneous Movement Pupil Size: 1= Pupils >than Normal Bone or Joint Aches: 2= Severe Diffuse Aches Runny Nose/ Eye Tearin= Runny Nose/Eyes GI Upset > 30mins: 2= Nausea/Diarrhea Tremor Observation of Outstretched Hands: 2= Slight Tremor Visible Yawning Observation: 1= 1-2x During Session Anxiety or Irritability: 2=Irritable/Anxious Goose Flesh Skin: 0=Smooth Skin COWS Score: 16 S Progress Note (SOAP) Subjective: Sweating, chills, body ache, interrupted sleep Objective: 06/11/18 16:14 Last Vital Signs Temp Pulse Resp BP Pulse Ox 97.2 F L 72 18 107/70 06/11/18 14:55 06/11/18 14:55 06/11/18 14:55 06/11/18 14:55 Laboratory Tests 06/09/18 06/10/18 06/10/18 13:45 06:00 06:00 WBC 6.4 RBC 4.69 Hgb 14.0 Hct 41.8 MCV 89.1 MCH 29.8 MCHC 33.5 RDW 13.4 Plt Count 286 MPV 8.5 Sodium 138 Potassium 4.0 Chloride 100 Carbon Dioxide 29 Anion Gap 9 BUN 10 Creatinine 1.0 Creat Clearance w eGFR > 60 Random Glucose 121 H Calcium 9.4 Total Bilirubin 0.5 AST 19 ALT 37 Alkaline Phosphatase 55 Total Protein 7.7 Albumin 4.1 Urine Color Yellow Urine Appearance Slcloudy Urine pH 5.0 D Ur Specific [place] 1.023 Urine Protein Negative Urine Glucose (UA) Negative Urine Ketones Negative Urine Blood Negative Urine Nitrite Negative Urine Bilirubin Negative Urine Urobilinogen Negative Ur Leukocyte Esterase Negative RPR Titer 06/10/18 06:00 WBC RBC Hgb Hct MCV MCH MCHC RDW Plt Count MPV Sodium Potassium Chloride Carbon Dioxide Anion Gap BUN Creatinine Creat Clearance w eGFR Random Glucose Calcium Total Bilirubin AST ALT Alkaline Phosphatase Total Protein Albumin Urine Color Urine Appearance Urine pH Ur Specific [place] Urine Protein Urine Glucose (UA) Urine Ketones Urine Blood Urine Nitrite Urine Bilirubin Urine Urobilinogen Ur Leukocyte Esterase RPR Titer Nonreactive Labs reviewed Assessment: 06/11/18 16:15 Withdrawal sx Plan: Continue detox
--- NOTE | 2018-06-11 20:28 | DS ---
[facility] Detox Discharge Summary Admission Date: 06/09/18 Discharge Date: 06/11/18 - History Additional Comments: Patient is leaving AMA because he has to take care of important personal problem Pertinent Past History: Alcohol and heroin withdrawal symptoms - Physical Exam Results Vital Signs: Vital Signs Temperature 97.2 F L 06/11/18 18:22 Pulse Rate 72 06/11/18 18:22 Respiratory Rate 18 06/11/18 18:22 Blood Pressure 111/70 06/11/18 18:22 O2 Sat by Pulse Oximetry (%) Laboratory Last Values WBC 6.4 K/mm3 (4.0-10.0) 06/10/18 06:00 RBC 4.69 M/mm3 (4.00-5.60) 06/10/18 06:00 Hgb 14.0 GM/dL (11.7-16.9) 06/10/18 06:00 Hct 41.8 % (35.4-49) 06/10/18 06:00 MCV 89.1 fl (80-96) 06/10/18 06:00 MCH 29.8 pg (25.7-33.7) 06/10/18 06:00 MCHC 33.5 g/dl (32.0-35.9) 06/10/18 06:00 RDW 13.4 % (11.9-15.9) 06/10/18 06:00 Plt Count 286 K/MM3 (134-434) 06/10/18 06:00 MPV 8.5 fl (7.5-11.1) 06/10/18 06:00 Sodium 138 mmol/L (136-145) 06/10/18 06:00 Potassium 4.0 mmol/L (3.5-5.1) 06/10/18 06:00 Chloride 100 mmol/L (98-107) 06/10/18 06:00 Carbon Dioxide 29 mmol/L (21-32) 06/10/18 06:00 Anion Gap 9 MMOL/L (8-16) 06/10/18 06:00 BUN 10 mg/dL (7-18) 06/10/18 06:00 Creatinine 1.0 mg/dL (0.55-1.3) 06/10/18 06:00 Creat Clearance w eGFR > 60 (>60) 06/10/18 06:00 Random Glucose 121 mg/dL (74-106) H 06/10/18 06:00 Calcium 9.4 mg/dL (8.5-10.1) 06/10/18 06:00 Total Bilirubin 0.5 mg/dL (0.2-1) 06/10/18 06:00 AST 19 U/L (15-37) 06/10/18 06:00 ALT 37 U/L (13-61) 06/10/18 06:00 Alkaline Phosphatase 55 U/L (45-117) 06/10/18 06:00 Total Protein 7.7 g/dl (6.4-8.2) 06/10/18 06:00 Albumin 4.1 g/dl (3.4-5.0) 06/10/18 06:00 Urine Color Yellow 06/09/18 13:45 Urine Appearance Slcloudy 06/09/18 13:45 Urine pH 5.0 (5.0-8.0) D 06/09/18 13:45 Ur Specific [place] 1.023 (1.001-1.035) 06/09/18 13:45 Urine Protein Negative (NEGATIVE) 06/09/18 13:45 Urine Glucose (UA) Negative (NEGATIVE) 06/09/18 13:45 Urine Ketones Negative (NEGATIVE) 06/09/18 13:45 Urine Blood Negative (NEGATIVE) 06/09/18 13:45 Urine Nitrite Negative (NEGATIVE) 06/09/18 13:45 Urine Bilirubin Negative (<2.0 mg/dL) 06/09/18 13:45 Urine Urobilinogen Negative mg/dL (0.2-1.0) 06/09/18 13:45 Ur Leukocyte Esterase Negative (NEGATIVE) 06/09/18 13:45 RPR Titer Nonreactive (NONREACTIVE) 06/10/18 06:00 Pertinent Admission Physical Exam Findings: Alcohol dependence, Opioid dependence, Nicotine dependence cocaine dependence, insomnia and depression - Medication Discharge Medications: Ambulatory Orders NK [No Known Home Medication] 05/25/16 - Diagnosis (1) Alcohol dependence with uncomplicated withdrawal Status: Acute (2) Insomnia Status: Acute (3) Insomnia secondary to depression with anxiety Status: Acute (4) Opioid dependence with withdrawal Status: Acute (5) Cocaine dependence Status: Chronic Qualifiers: Substance use status: uncomplicated Qualified Code(s): F14.20 - Cocaine dependence, uncomplicated (6) Nicotine dependence Status: Chronic Qualifiers: Nicotine product type: cigarettes Substance use status: uncomplicated Qualified Code(s): F17.210 - Nicotine dependence, cigarettes, uncomplicated - AMA Did Patient Leave Against Medical Advice: Yes
[2018-06-11 21:32] VITALS: BP 117/69; PULSE 79; TEMP 97.4
[2018-06-13] MEDS ORDERED: METHADONE HCL 10 MG TABLET (FOR DETOX USE ONLY) PO SCH (10:00)
[2018-06-13] MEDS ORDERED: diazePAM 5 MG TABLET PO SCH (10:00)
[2018-06-14] MEDS ORDERED: METHADONE HCL 5 MG TABLET (FOR DETOX USE ONLY) PO SCH (06:00)
== END 2018-06-11 20:49 | disposition left against medical advice (07) | DRG 770 ==
LOC: YASAS 10:24 → Y3N 13:12
PROC: HZ2ZZZZ Detoxification Services for Substance Abuse Treatment (ICD-10-PCS; principal; 2018-06-09)
DX: F11.23 Opioid dependence with withdrawal (principal); F10.230 Alcohol dependence with withdrawal, uncomplicated; F14.20 Cocaine dependence, uncomplicated; F17.210 Nicotine dependence, cigarettes, uncomplicated; F51.05 Insomnia due to other mental disorder
CPT/HCPCS: 36415; 80053; 81003; 85027; 86593; 93005; 93010; J0735

== ENCOUNTER 2020-03-26 09:02 | Inpatient (IN) | payer OTHER ==
--- NOTE | 2020-03-26 10:20 | BHS.RME ---
Physical/Psych/Mental Status - Behavior General Behavior: Increased activity (restlessness, agitation) Eye Contact: Normal - Cooperativeness Cooperativeness: Cooperative - Thinking Thought Processes: Tight, Logical, Goal Directed Thought content: Future oriented - Physical Health Problems Is patient presently having any pain?: No Does patient presently have any injuries (include location): No Does patient currently have a fever: No Is patient : No COWS - Scale Resting Pulse: 0= [place] 80 or Below Sweatin= Chills/Flushing Restless Observation: 1= Difficult to Sit Still Pupil Size: 1= Pupils >than Normal Bone or Joint Aches: 0= None Runny Nose/ Eye Tearin= Runny Nose/Eyes GI Upset > 30mins: 0= None Tremor Observation: 1= Tremor [place], Not Seen Yawning Observation: 0= None Anxiety or Irritability: 2=Irritable/Anxious Goose Flesh Skin: 0=Smooth Skin COWS Score: 8 CIWA Nausea/Vomitin-No Nausea/No Vomiting Muscle Tremors: 1-None Visible, but [place] Anxiety: 4-Mod. Anxious/Guarded Agitation: 2 Paroxysmal Sweats: 4-Forehead w/Sweat Beads Orientation: 1-Uncertain about Date Tacttile Disturbances: 0-None Auditory Disturbances: 0-None Visual Disturbances: 0-None Headache: 3-Moderate CIWA-Ar Total Score: 15
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
[2020-03-26] MEDS ORDERED: MAGNESIUM CITRATE 300 ML BOTTLE PO PRN (11:13)
[2020-03-26] MEDS ORDERED: METHOCARBAMOL 500 MG TABLET PO PRN (11:13)
[2020-03-26] MEDS ORDERED: MAGNESIUM HYDROX 2400MG/30ML ORAL SUSPENSION 30 ML CUP PO PRN (11:13)
[2020-03-26] MEDS ORDERED: METHADONE HCL 10 MG TABLET (FOR DETOX USE ONLY) PO ONE (11:13)
[2020-03-26] MEDS ORDERED: ONDANSETRON *ODT* 4 MG TABLET SL PRN (11:13)
[2020-03-26] MEDS ORDERED: MENTHOL/PHENOL 1 EACH UD MM PRN (11:13)
[2020-03-26] MEDS ORDERED: ACETAMINOPHEN 325 MG TABLET (FP) PO PRN ×2 (11:13)
[2020-03-26] MEDS ORDERED: BISMUTH SUBSALICYLATE 262 MG/15 ML BTL PO PRN (11:13)
[2020-03-26] MEDS ORDERED: MAG HYDROX/AL HYDROX/SIMETH 30 ML UNIT-DOSE CUP PO PRN (11:13)
[2020-03-26] MEDS ORDERED: cloNIDine HCL 0.1 MG TABLET PO PRN (11:13)
[2020-03-26] MEDS ORDERED: IBUPROFEN 400 MG TABLET (FP) PO PRN (11:13)
[2020-03-26] MEDS ORDERED: diazePAM 2 MG TABLET PO PRN (11:15)
[2020-03-26 11:29] VITALS: BMI 25.7
--- NOTE | 2020-03-26 12:09 | EKG ---
Test Reason : Blood Pressure : / mmHG Vent. Rate : 058 BPM Atrial Rate : 058 BPM P-R Int : 150 ms QRS Dur : 092 ms QT Int : 400 ms P-R-T Axes : 045 059 027 degrees QTc Int : 392 ms SINUS BRADYCARDIA EARLY REPOLARIZATION OTHERWISE NORMAL ECG WHEN COMPARED WITH ECG OF 09-JUN-2018 13:30, NO SIGNIFICANT CHANGE WAS FOUND Confirmed by MD LARSON MOYSES ([id number]) on 03/26/2020 12:09:05 PM Referred By: Confirmed By:GAETANO LARSON MD
[2020-03-26] MEDS: hydrOXYzine PAMOATE 25 MG CAPSULE (FP) PO SCH ×3 (13:37→21:56)
[2020-03-26] MEDS: diazePAM 5 MG TABLET PO PRN ×3 (13:41→21:56)
[2020-03-26] MEDS ORDERED: TUBERCULIN PPD 5 TU/0.1ML VIAL ID ONE (14:15)
[2020-03-26 16:26] LABS: HEMATOCRIT 41.9 % (35.4-49); HEMOGLOBIN 14.3 GM/dL (11.7-16.9); MCH 30.6 pg (25.7-33.7); MCHC 34.1 g/dl (32.0-35.9); MEAN CELL VOLUME 89.8 fl (80-96); MEAN PLT VOLUME 8.3 fl (7.5-11.1); PLATELET COUNT 301 K/MM3 (134-434); RBC 4.67 M/mm3 (4.00-5.60); RDW 12.9 % (11.9-15.9)
[2020-03-26 16:36] LABS: ALBUMIN 4.2 g/dl (3.4-5.0); CALCIUM 8.9 mg/dL (8.5-10.1); POTASSIUM 4.1 mmol/L (3.5-5.1)
[2020-03-26 16:38] LABS: BILIRUBIN,TOTAL 0.7 mg/dL (0.2-1); TOT PROT 7.6 g/dl (6.4-8.2)
[2020-03-26] MEDS ORDERED: MELATONIN 5 MG TABLETS PO SCH (22:00)
[2020-03-26] MEDS ORDERED: THIAMINE HCL 100 MG TABLET (FP) PO SCH (22:00)
[2020-03-27] MEDS: hydrOXYzine PAMOATE 25 MG CAPSULE (FP) PO SCH ×2 (06:12→11:59)
[2020-03-27] MEDS: diazePAM 5 MG TABLET PO PRN (06:14)
[2020-03-27 06:56] VITALS: BP 120/78; PULSE 74; TEMP 97.7
[2020-03-27] MEDS ORDERED: METHADONE HCL 5 MG TABLET (FOR DETOX USE ONLY) ONE (08:52)
[2020-03-27] MEDS ORDERED: METHADONE HCL 10 MG TABLET (FOR DETOX USE ONLY) ONE (08:52)
[2020-03-27] MEDS ORDERED: PRENATAL VITAMINS W/ FOLIC ACID TABLET (FP) PO SCH (10:00)
[2020-03-27] MEDS ORDERED: METHADONE (DETOX) 20 MG, METHADONE (DETOX) 5 MG PO ONE (10:00)
--- NOTE | 2020-03-27 10:54 | DS ---
[facility] Detox Discharge Summary Admission Date: 03/26/20 Discharge Date: 03/27/20 - History Present History: Alcohol Dependence, Opioid Dependence Additional Comments: Pt declined to continue with detox and requests to discontinue treatment and c/o craving for a "high" stating "I'm not ready. It's already in my head. i can't do it". All efforts to encourage pt by this real estate underwriter, and the hospice social worker Ms Maejacek Burgos to stay in treatment was unsuccessful. Pt was instructed to go to the nearest ER for medical care should he have any medical emergency. Narcan nasal spray courtesy Rx sent electronically to pt's home phamacy at [facility]. Pertinent Past History: Denies - Physical Exam Results Vital Signs: Vital Signs Temperature 97.7 F 03/27/20 06:55 Pulse Rate 74 03/27/20 06:55 Respiratory Rate 16 03/27/20 06:55 Blood Pressure 120/78 03/27/20 06:55 O2 Sat by Pulse Oximetry (%) 99 03/27/20 06:55 Pertinent Admission Physical Exam Findings: Laboratory Tests 03/26/20 03/26/20 03/26/20 11:00 11:00 11:00 WBC 6.0 RBC 4.67 Hgb 14.3 Hct 41.9 MCV 89.8 MCH 30.6 MCHC 34.1 RDW 12.9 Plt Count 301 MPV 8.3 Sodium 140 Potassium 4.1 Chloride 103 Carbon Dioxide 27 Anion Gap 9 BUN 12.0 Creatinine 1.0 Est GFR (CKD-EPI)AfAm 112.51 Est GFR (CKD-EPI)NonAf 97.08 Random Glucose 95 Calcium 8.9 Total Bilirubin 0.7 AST 12 L ALT 21 Alkaline Phosphatase 42 L Total Protein 7.6 Albumin 4.2 Syphilis Serology Non-reactive COVID-19 (MARLENE) 03/26/20 12:20 WBC RBC Hgb Hct MCV MCH MCHC RDW Plt Count MPV Sodium Potassium Chloride Carbon Dioxide Anion Gap BUN Creatinine Est GFR (CKD-EPI)AfAm Est GFR (CKD-EPI)NonAf Random Glucose Calcium Total Bilirubin AST ALT Alkaline Phosphatase Total Protein Albumin Syphilis Serology COVID-19 (MARLENE) Not detected - Treatment Hospital Course: Discharged Condition Good, Rehab Referral Accepted Patient has Accepted a Rehab Referral to: [facility], [place], [place] - Medication Discharge Medications: Ambulatory Orders Naloxone HCl [Narcan] 4 mg NS ONCE #1 spray 03/27/20 - Diagnosis (1) Alcohol dependence with uncomplicated withdrawal Status: Acute (2) Nicotine dependence Status: Acute Qualifiers: Nicotine product type: cigarettes Substance use status: in withdrawal Qualified Code(s): F17.213 - Nicotine dependence, cigarettes, with withdrawal (3) Opioid dependence with withdrawal Status: Acute - AMA Did Patient Leave Against Medical Advice: Yes (AMA)
[2020-03-28] MEDS ORDERED: METHADONE HCL 10 MG TABLET (FOR DETOX USE ONLY) PO ONE (10:00)
[2020-03-29] MEDS ORDERED: METHADONE (DETOX) 10 MG, METHADONE (DETOX) 5 MG PO ONE (10:00)
[2020-03-30] MEDS ORDERED: METHADONE HCL 10 MG TABLET (FOR DETOX USE ONLY) PO ONE (10:00)
[2020-03-31] MEDS ORDERED: METHADONE HCL 5 MG TABLET (FOR DETOX USE ONLY) PO ONE (06:00)
== END 2020-03-27 10:20 | disposition left against medical advice (07) | DRG 770 ==
LOC: YASAS 09:02 → Y5N DETOX 12:04
PROVIDERS: ADMIT Allergy & Immunology; ATTEND Allergy & Immunology
PROC: HZ2ZZZZ Detoxification Services for Substance Abuse Treatment (ICD-10-PCS; principal; 2020-03-26)
DX: F10.230 Alcohol dependence with withdrawal, uncomplicated (principal); F11.23 Opioid dependence with withdrawal; F17.211 Nicotine dependence, cigarettes, in remission; M54.5 Low back pain; Z91.018 Allergy to other foods
CPT/HCPCS: 36415; 80053; 85027; 86780; 93005; 93010; U0003